=== PATIENT | female | born 1935 | race African-American/Black ===

== ENCOUNTER 2021-02-11 08:56 | Inpatient (IN) | payer OTHER, MEDICAID ==
[~2021-02-11] VITALS: Ht 167.6 cm; Wt 64.4 kg
[~2021-02-11 08:56] MED LIST: ALLO100T PO; LISI2.5T47 PO; LOVA20TA2 PO; METF-414 PO; PROP80CA2 PO
[2021-02-11] MEDS ORDERED: HALOPERIDOL LACTATE 5MG/ML VIAL IM ONE ×2 (09:45→12:45)
[2021-02-11 11:08] LABS: CLARITY URINE CLOUDY (CLEAR); COLOR URINE YELLOW (YELLOW); KETONES URINE TRACE (NEGATIVE); LEUKOCYTE ESTERASE URINE 2+ (NEGATIVE); NITRITE URINE NEGATIVE (NEGATIVE); OCCULT BLOOD URINE 1+ (NEGATIVE); PH URINE 6.5 (4.5-8.0); PROTEIN URINE TRACE (NEGATIVE); SPECIFIC GRAVITY URINE 1.006 (1.005-1.030); UROBILINOGEN URINE 0.2 E.U./dL (0.2-1.0)
[2021-02-11 11:09] LABS: BASOPHILS % 0.2 % (0.0-2.0); EOSINOPHILS % 0.9 % (0.0-5.0); HEMOGLOBIN. 11.6 g/dL (12.0-16.0); LYMPHOCYTES % 20.6 % (20.0-50.0); MEAN CORPUSCULAR VOLUME 87.1 fL (81.0-99.0); MEAN PLATELET VOLUME 8.1 fl (7.4-10.4); MONOCYTES % 7.1 % (2.0-8.0); NEUTROPHILS % 71.2 % (40.0-76.0); PLATELET 199 x1000/uL (130-400); RED BLOOD CELL COUNT 4.01 mill/uL (4.2-5.4); RED CELL DISTRIBUTION WIDTH 14.9 % (11.6-14.6)
[2021-02-11 11:13] LABS: CHLORIDE 106 mEq/L (98-107)
[2021-02-11] MEDS ORDERED: SODIUM CHLORIDE 0.9% 1000ML BAG (SEPSIS BOLUS) IV ONE (11:45)
[2021-02-11] MEDS ORDERED: LEVOFLOXACIN 750MG PREMIX 150 ML IV ONE (11:45)
[2021-02-11] MEDS ORDERED: LORAZEPAM 2MG/ML CPJ IM STA (12:43)
[2021-02-11] MEDS ORDERED: ACETAMINOPHEN 325MG TABLET PO PRN (15:00)
[2021-02-11] MEDS ORDERED: HYDRALAZINE 20MG/ML VIAL IV PRN (15:00)
[2021-02-11] MEDS ORDERED: ONDANSETRON HCL 4MG/2ML INJ IV PRN (15:00)
[2021-02-11] MEDS ORDERED: LEVOFLOXACIN 500MG PREMIX 100 ML IV SCH (16:00)
[2021-02-11 17:51] VITALS: BP 165/91
[2021-02-11] MEDS: AMLODIPINE 10MG TABLET PO SCH (19:00)
[2021-02-11 20:00] VITALS: BP 141/81
[2021-02-11] MEDS ORDERED: DEXTROSE 50% WATER 50ML SYRINGE IV PRN (22:30)
[2021-02-12] VITALS: BP 167/93
[2021-02-12 04:00] VITALS: BP_SYST 130
[2021-02-12] MEDS: BLOOD SUGAR DIAGNOSTIC STRIP TEST SCH ×4 (06:40→21:36)
[2021-02-12] MEDS: INSULIN LISPRO 100 UNITS/ML SUBCUT SCH ×5 (06:40→21:37)
[2021-02-12 08:00] VITALS: BP 152/94
[2021-02-12] MEDS: AMLODIPINE 10MG TABLET PO SCH (09:15)
[2021-02-12] MEDS ORDERED: LORAZEPAM 2MG/ML CPJ IV SCH (11:30)
[2021-02-12] MEDS: RISPERIDONE 0.5MG TABLET PO SCH (11:38)
[2021-02-12 12:00] VITALS: BP 156/88
[2021-02-12 16:00] VITALS: BP 149/88
[2021-02-12] MEDS: LEVOFLOXACIN 250MG PREMIX 50 ML IV SCH (18:03)
[2021-02-12 20:00] VITALS: BP 145/92
[2021-02-13] VITALS: BP 155/96
[2021-02-13] MEDS ORDERED: LORAZEPAM 2MG/ML CPJ IV NR (02:00)
[2021-02-13 04:00] VITALS: BP 113/73
[2021-02-13 08:00] VITALS: BP 134/91
[2021-02-13] MEDS: AMLODIPINE 10MG TABLET PO SCH (08:45)
[2021-02-13] MEDS: RISPERIDONE 0.5MG TABLET PO SCH (08:45)
[2021-02-13] MEDS: INSULIN LISPRO 100 UNITS/ML SUBCUT SCH (11:57)
[2021-02-13] MEDS: BLOOD SUGAR DIAGNOSTIC STRIP TEST SCH (11:57)
[2021-02-13 12:00] VITALS: BP 119/70
[2021-02-13 15:16] VITALS: BP 119/70
[2021-02-13 16:00] VITALS: BP 116/69
[2021-02-13] MEDS: LEVOFLOXACIN 250MG PREMIX 50 ML IV SCH (16:00)
[2021-02-14] MEDS ORDERED: LEVOFLOXACIN 250MG TABLET PO SCH (11:00)
== END 2021-02-13 16:55 | disposition home or self-care (01) | DRG 871 ==
LOC: ER 08:56 → EDBEDREQTM 11:46 → EDBEDREQ 11:46 → EDBEDREQSVC 11:46 → 7EST 13:23 → EDBEDREQ 13:25 → EDBEDREQTM 13:25 → ENRESERV 15:09
PROVIDERS: ADMIT Internal Medicine Pulmonary Disease; ATTEND Internal Medicine Pulmonary Disease
DX: A41.9 Sepsis, unspecified organism (principal); G93.41 Metabolic encephalopathy; N39.0 Urinary tract infection, site not specified; F03.90 Unspecified dementia, unspecified severity, without behavioral disturbance, psychotic disturbance, mood disturbance, and anxiety; I10 Essential (primary) hypertension; D64.9 Anemia, unspecified; I16.0 Hypertensive urgency; E78.5 Hyperlipidemia, unspecified; Z79.899 Other long term (current) drug therapy; Z78.1 Physical restraint status; Z88.0 Allergy status to penicillin; Z88.8 Allergy status to other drugs, medicaments and biological substances
CPT/HCPCS: 36415; 70551; 71045; 80053; 81003; 82962; 83605; 84145; 84484; 85025; 93005; 99291; C1893; J0360; J1630; J1815; J1956; J2060; J7030; J7040

== ENCOUNTER 2023-06-19 14:33 | Emergency (ER) | payer BC, MEDICARE, OTHER ==
[~2023-06-19] VITALS: Ht 165.1 cm; Wt 73.0 kg
[2023-06-19 14:44] VITALS: O2SAT 98
[2023-06-19 16:03] LABS: BASOPHILS % 0.3 % (0.0-2.0); EOSINOPHILS % 0.9 % (0.0-5.0); HEMATOCRIT. 39.5 % (36.0-48.0); HEMOGLOBIN. 13.4 g/dL (12.0-16.0); LYMPHOCYTES % 18.7 % (20.0-50.0); MEAN CORPUSCULAR HGB CONC 33.9 g/dL (31.0-37.0); MEAN CORPUSCULAR VOLUME 85.4 fL (81.0-99.0); MEAN PLATELET VOLUME 7.9 fl (7.4-10.4); MONOCYTES % 7.5 % (2.0-8.0); NEUTROPHILS % 72.6 % (40.0-76.0); PLATELET 249 x1000/uL (130-400); RED BLOOD CELL COUNT 4.63 mill/uL (4.2-5.4); WHITE BLOOD COUNT 8.4 x1000/uL (4.5-11.0)
[2023-06-19 16:13] LABS: ALANINE AMINOTRANSFERASE 9 IU/L (10-49); ASPARTATE AMINOTRANSFERASE 17 IU/L (<34); BILIRUBIN TOTAL 0.7 mg/dL (0.1-1.0); CALCIUM 10.1 mg/dL (8.7-10.4); CARBON DIOXIDE 27 mEq/L (21-32); CHLORIDE 99 mEq/L (98-107); CREATININE 1.5 mg/dL (0.6-1.0); GLUCOSE 121 mg/dL (70-105); POTASSIUM 3.9 mEq/L (3.5-5.1); SODIUM 134 mEq/L (136-145); TROPONIN I HIGH SENSITIVITY 9 ng/L (3.0-34); UREA NITROGEN BLOOD 23 mg/dL (9-23)
[2023-06-19] MEDS: SODIUM CHLORIDE 0.9% 1,000 ML IV ONE (17:34)
[2023-06-19 19:24] LABS: TROPONIN I HIGH SENSITIVITY 7 ng/L (3.0-34)
[2023-06-19 20:02] LABS: CLARITY URINE CLEAR (CLEAR); COLOR URINE YELLOW (YELLOW); GLUCOSE URINE NEGATIVE (NEGATIVE); KETONES URINE NEGATIVE (NEGATIVE); LEUKOCYTE ESTERASE URINE TRACE (NEGATIVE); NITRITE URINE NEGATIVE (NEGATIVE); OCCULT BLOOD URINE NEGATIVE (NEGATIVE); PH URINE 5.5 (4.5-8.0); PROTEIN URINE NEGATIVE (NEGATIVE); SPECIFIC GRAVITY URINE 1.006 (1.005-1.030); UROBILINOGEN URINE 0.2 E.U./dL (0.2-1.0)
[2023-06-19 20:28] LABS: BACTERIA URINE 3+; RBC URINE 0-2 /hpf (0-2); SQUAMOUS EPITHELIAL CELL URINE FEW /lpf (RARE/1+); WBC URINE 0-2 /hpf (0-2)
[2023-06-19 23:42] VITALS: BP 140/80; PULSE 92; RESP 18; TEMP 97.9
== END 2023-06-19 23:45 | disposition home or self-care (01) ==
LOC: ER 14:33
DX: R55 Syncope and collapse (principal); E87.1 Hypo-osmolality and hyponatremia; N17.9 Acute kidney failure, unspecified; E11.9 Type 2 diabetes mellitus without complications; E78.00 Pure hypercholesterolemia, unspecified; I10 Essential (primary) hypertension; Z79.899 Other long term (current) drug therapy
CPT/HCPCS: 99285; 96360; 96361; 70450; 71045; 80053; 81003; 82962; 85025; 84484; 36415; 93005; J7030